=== PATIENT | male | born 1970 | race Caucasian/White ===

== ENCOUNTER 2023-10-21 12:15 | Emergency (ER) | payer OTHER, SELFPAY ==
[2023-10-21 12:20] VITALS: BP 132/75; PULSE 104; RESP 18; TEMP 36.7; O2SAT 98; BMI 25.0
--- NOTE | 2023-10-21 12:26 | DI.RAD.S_ITS ---
PROCEDURE: XR ANKLE LT MIN 3V INDICATIONS: Fall last month on ICE extreme pain. TECHNIQUE: 3 views of the ankle were acquired. COMPARISON: [facility], CR, XR FOOT LT MIN 3V, 10/21/2023, 12:33. FINDINGS: Bones: No acute fractures or dislocations. Focal irregularity can be seen involving the distal anterior tibia, which may be related to a remote fracture. Ankle mortise is normally aligned. No suspicious bony lesions. Incidental note is made of an enthesophyte at the Achilles insertion. Soft tissues: No tibiotalar joint effusion. Achilles tendon appears normal. IMPRESSION: No acute bony abnormality or significant effusion. Dictated by: Josias Montelongo M.D. on 10/21/2023 at 11:53 Approved by: Josias Montelongo M.D. on 10/21/2023 at 11:54
--- NOTE | 2023-10-21 12:26 | DI.RAD.S_ITS ---
PROCEDURE: XR FOOT LT MIN 3V INDICATIONS: Fall last month on ICE extreme pain. TECHNIQUE: 3 views of the foot were acquired. COMPARISON: [facility], CR, XR ANKLE LT MIN 3V, 10/21/2023, 12:33. FINDINGS: Bones: Focal irregularity can be seen involving the distal aspect of the distal phalanx of the great toe. Generalized degenerative changes are seen. Truncation can be seen involving the distal phalanges of the 4th and 5th toes. No displaced fractures are seen. No suspicious lytic or blastic lesions are seen. Incidental note is made of an enthesophyte at the Achilles insertion. Toe alignment abnormalities are seen. Soft tissues: No tibiotalar joint effusion. Achilles tendon appears normal. IMPRESSION: No acute fracture is seen. Irregularity can be seen involving the distal aspect of the distal phalanx of the great toe. Please correlate with physical examination findings and patient history. There is truncation seen of the distal phalanges of the 4th and 5th toes. Please correlate with prior history, including frostbite. If there is strong suspicion for developing osteomyelitis, please consider a dedicated MRI without and with contrast for further evaluation (assuming that there is no contraindication to MRI). Dictated by: Josias Montelongo M.D. on 10/21/2023 at 11:51 Approved by: Josias Montelongo M.D. on 10/21/2023 at 11:53
[2023-10-21 12:36] VITALS: PULSE 88
--- NOTE | 2023-10-21 12:41 | ED.LOWEXIN ---
HPI - Extremity Injury (Lower) <JACINTA De Leon - Last Filed: 10/21/23 15:57> General Chief Complaint: Extremity Injury, Lower Stated Complaint: inj lt ankle/foot Time Seen by Provider: 10/21/23 12:39 Source: patient Mode of arrival: Ambulatory History of Present Illness HPI Narrative: 53-year-old male, daily smoker, presents to the emergency department with left foot and ankle pain. Patient states that he slipped on the ice on October 13 and symptoms began 3 days afterwards. No home treatment and symptoms are not improving. Related Data Previous Rx's Medication Instructions Recorded cephalexin 500 mg tablet 1,000 mg (2 x 500 mg) PO Q12H 10/21/23 Cellulitis 10 days #40 tabs Allergies Allergy/AdvReac Type Severity Reaction Status Date / Time No Known Drug Allergies Allergy Verified 10/21/23 12:25 Review of Systems <JACINTA De Leon - Last Filed: 10/21/23 15:57> Review of Systems Narrative: Narrative: See HPI. GENERAL: Denies chills, fatigue, fever, sweats. HEENT: Denies sinus pain, ear pain, sore throat, difficulty swallowing, dizziness. RESPIRATORY: Denies dyspnea, cough, wheezing, sputum. CARDIOVASCULAR: Denies chest pain, palpitations, edema. GASTROINTESTINAL: Denies nausea, vomiting, abdominal pain, diarrhea, constipation. : Denies dysuria, frequency, incontinence, hematuria, urinary retention, flank pain. MSK: Denies weakness. Endorses left foot pain. SKIN: Denies rash, skin lesions, or pruritis. NEUROLOGIC: Denies weakness, dizziness, headache, numbness, confusion. PSYCHIATRIC: No concerning psychosocial issues. Patient History <JACINTA De Leon - Last Filed: 10/21/23 15:57> Social History Smoking Status: Current every day smoker Smoking Status: Current every day smoker Substance Use Type: does not use Exam <JACINTA De Leon - Last Filed: 10/21/23 15:57> Narrative Exam Narrative: Exam Narrative: GENERAL: This is a well-nourished, well-developed patient, in no acute distress. HEAD: Atraumatic. Normocephalic. EYES: Pupils equal round and reactive. No scleral icterus, injection or drainage. ENT: Nose without bleeding, purulent drainage. Airway patent. NECK: Trachea midline. No JVD or lymphadenopathy. Nontender. RESPIRATORY: Normal respiratory rate and effort. MSK: Moves all extremities. Normal range of motion, no clubbing or edema. Neurovascularly intact. NEURO: A&O x 3. SKIN: Warm, dry, no rashes or lesions noted. ANKLE: There is redness, warmth and swelling, but no bruising or asymmetry. There is tenderness to general palpation. Sensation grossly intact. There is no tenderness over the medial, lateral malleolus, proximal tibia/fibula. The anterior mortise is non-tender. Flexion and extension is intact. Unable to test for stability or laxity due to pain. The contralateral ankle exam is unremarkable. FOOT: There is redness, warmth and swelling, mild bruising of medial calcaneus but no asymmetry. There is tenderness to general palpation. Sensation grossly intact. There is no tenderness over the mid-foot, metatarsals or arch. The ankle flexion and extension is intact. Toes range of motion intact. The contralateral foot exam is unremarkable. Initial Vital Signs Initial Vital Signs: Vital Signs Temperature 98.0 F 10/21/23 12:20 Pulse Rate 104 H 10/21/23 12:20 Respiratory Rate 18 10/21/23 12:20 Blood Pressure 132/75 10/21/23 12:20 Pulse Oximetry 98 10/21/23 12:20 Oxygen Delivery Method Room Air 10/21/23 12:20 Reviewed <Gerardo Baez DO - Last Filed: 10/21/23 16:14> Initial Vital Signs Initial Vital Signs: Vital Signs Temperature 98.0 F 10/21/23 12:20 Pulse Rate 104 H 10/21/23 12:20 Respiratory Rate 18 10/21/23 12:20 Blood Pressure 132/75 10/21/23 12:20 Pulse Oximetry 98 10/21/23 12:20 Oxygen Delivery Method Room Air 10/21/23 12:20 Course <JACINTA De Leon - Last Filed: 10/21/23 15:57> Orders Ordered: ED Orders 10/21/23 12:26 XR ankle LT min 3V Stat XR foot LT min 3V Stat Vital Signs Vital signs: Vital Signs - 8 hr 10/21/23 12:20 10/21/23 12:36 10/21/23 13:25 Temperature 98.0 F Pulse Rate 104 H 80 Pulse Rate [Left Dorsalis Pedis] 88 Respiratory Rate 18 18 Blood Pressure 132/75 Pulse Oximetry 98 98 Oxygen Delivery Method Room Air Room Air <Gerardo Baez DO - Last Filed: 10/21/23 16:14> Orders Ordered: ED Orders 10/21/23 12:26 XR ankle LT min 3V Stat XR foot LT min 3V Stat Vital Signs Vital signs: Vital Signs - 8 hr 10/21/23 12:20 10/21/23 12:36 10/21/23 13:25 Temperature 98.0 F Pulse Rate 104 H 80 Pulse Rate [Left Dorsalis Pedis] 88 Respiratory Rate 18 18 Blood Pressure 132/75 Pulse Oximetry 98 98 Oxygen Delivery Method Room Air Room Air MDM - Extremity Injury (Lower) <JACINTA De Leon - Last Filed: 10/21/23 15:57> Differential Diagnosis Differential diagnosis: Likely ankle sprain and strain and other (Cellulitis) Imaging Data Extremity x-ray #1: My Impression: Normal Foot x-ray. Radiologist's Impression: [place] [address] XRay Report Signed Patient: Dannie Bateman MR#: [id number] : 1970 Acct:[id number] Age/Sex: 53 / M Date of Service: 10/21/23 Loc: ED Accession Number: [id number] Procedure: XR foot LT min 3V Ordering Provider: Gerardo Baez D.O. PROCEDURE: XR FOOT LT MIN 3V INDICATIONS: Fall last month on ICE extreme pain. TECHNIQUE: 3 views of the foot were acquired. COMPARISON: [facility], , XR ANKLE LT MIN 3V, 10/21/2023, 12:33. FINDINGS: Bones: Focal irregularity can be seen involving the distal aspect of the distal phalanx of the great toe. Generalized degenerative changes are seen. Truncation can be seen involving the distal phalanges of the 4th and 5th toes. No displaced fractures are seen. No suspicious lytic or blastic lesions are seen. Incidental note is made of an enthesophyte at the Achilles insertion. Toe alignment abnormalities are seen. Soft tissues: No tibiotalar joint effusion. Achilles tendon appears normal. IMPRESSION: No acute fracture is seen. Irregularity can be seen involving the distal aspect of the distal phalanx of the great toe. Please correlate with physical examination findings and patient history. There is truncation seen of the distal phalanges of the 4th and 5th toes. Please correlate with prior history, including frostbite. If there is strong suspicion for developing osteomyelitis, please consider a dedicated MRI without and with contrast for further evaluation (assuming that there is no contraindication to MRI). Dictated by: Josias Montelongo M.D. on 10/21/2023 at 11:51 Approved by: Josias Montelongo M.D. on 10/21/2023 at 11:53 Extremity x-ray #2: My Impression: Normal ankle x-ray. Radiologist's Impression: [address] [address] XRay Report Signed Patient: Dannie Bateman MR#: [id number] : 1970 Acct:[id number] Age/Sex: 53 / M Date of Service: 10/21/23 Loc: ED Accession Number: [id number] Procedure: XR ankle LT min 3V Ordering Provider: Gerardo Baez D.O. PROCEDURE: XR ANKLE LT MIN 3V INDICATIONS: Fall last month on ICE extreme pain. TECHNIQUE: 3 views of the ankle were acquired. COMPARISON: [facility], [facility]IL[facility], XR FOOT LT MIN 3V, 10/21/2023, 12:33. FINDINGS: Bones: No acute fractures or dislocations. Focal irregularity can be seen involving the distal anterior tibia, which may be related to a remote fracture. Ankle mortise is normally aligned. No suspicious bony lesions. Incidental note is made of an enthesophyte at the Achilles insertion. Soft tissues: No tibiotalar joint effusion. Achilles tendon appears normal. IMPRESSION: No acute bony abnormality or significant effusion. Dictated by: Josias Montelongo M.D. on 10/21/2023 at 11:53 Approved by: Josias Montelongo M.D. on 10/21/2023 at 11:54 MDM Narrative Medical decision making narrative: 53-year-old male with left lower extremity pain. X-rays revealed no acute fractures or dislocations. Assessment was concerning for beginning of cellulitis secondary to the redness, warmth, swelling and pain with palpation. Will treat patient with antibiotics for the cellulitis with instructions to follow up with family doctor later this week to ensure symptoms are improving. Per patient request, and for his comfort, patient was fitted for a walking boot. Discussed supportive care measures such as Rest (modified activity), along with ice, compression wrap/splint-immobilize as directed and elevation above heart. Tylenol or Ibuprofen for discomfort. Discussed plan of care and return precautions with patient, who verbalized understanding and was agreeable with course of action. Discharge Plan Departure Patient Disposition: Home Clinical Impression: Lower extremity sprain, Cellulitis of left lower leg Instructions: DI for Cellulitis -- Adult Activity Restrictions/Additional Instructions: *You have been diagnosed with cellulitis of your left lower leg. X-rays of your foot and ankle did not show any acute fractures or dislocations. My assessment was concerning for possible beginnings of cellulitis. We will treat this with antibiotics. As we discussed, good supportive care includes Rest (modified activity), along with ice, splint-immobilize as directed and elevation above heart. Tylenol or Ibuprofen for discomfort. We will fit you for a walking boot for your comfort. Take the antibiotics for the cellulitis as prescribed. Please follow-up with your family doctor at the end of the week if symptoms are not improving. *What to do: *Please continue to take your regular medications as directed. [x ] New medication prescriptions sent to your pharmacy: [[facility] ] [ ] New medication written as a paper prescription [ ] No new medications given *Please follow up with your primary care provider in 2-3 days, call for an appointment. Let them know you were seen in the Emergency Department and that we ask that you be seen in follow up. We will electronically transmit a record of today's note if your PCP is in our system *If you do not have a primary care provider please contact the [facility] Resource line at [phone]. They will ask some questions about your medical history and help get you set up with a doctor in the community. ? Return to ER if you should have any new, worsening or concerning symptoms, such as worsening pain, severe headache, confusion, chest pain, difficulty breathing, fever greater than 101 F, shaking chills, persistent vomiting to the point that you cannot drink fluids, or other new or worsening symptoms. Prescriptions: New cephalexin 500 mg tablet 1,000 mg PO Q12H 10 Days Qty: 40 0RF Stand Alone Forms: Patient Portal/API ED Sign-out <Gerardo Baez, DO - Last Filed: 10/21/23 16:14> Cosign ED Attending Cosignature Attestation: Dr Baez Co-Sign Statement: I was available for consultation during this patient's emergency department visit. This chart is signed by myself for administrative purposes only. I did not have direct contact with this patient during this visit. They were seen independently by the APC.
[2023-10-21 13:25] VITALS: PULSE 80; RESP 18; O2SAT 98
== END 2023-10-21 13:25 | disposition home or self-care (01) ==
PROVIDERS: Emergency Provider Registered Nurse
DX: S93.402A Sprain of unspecified ligament of left ankle, initial encounter (principal); L03.116 Cellulitis of left lower limb; W01.0XXA Fall on same level from slipping, tripping and stumbling without subsequent striking against object, initial encounter
CPT/HCPCS: 73610; 73630; 99281; 99283

== ENCOUNTER 2024-01-28 16:29 | Emergency (ER) | payer OTHER, SELFPAY ==
[2024-01-28] VITALS (7 sets, daily range): BP systolic 144–157; BP diastolic 70–84; PULSE 72–95; RESP 15–23; TEMP 36.7; O2SAT 95–97; BMI 25.0
--- NOTE | 2024-01-28 16:40 | DI.RAD.S_ITS ---
PROCEDURE: XR CHEST 1V INDICATIONS: chest pain TECHNIQUE: One view of the chest was acquired. COMPARISON: None. FINDINGS: Surgical changes and devices: None. Lungs and pleura: Lungs are clear. No pleural effusions or pneumothorax. Mediastinum: Mediastinal contours appear normal. Heart size is normal. Bones and chest wall: No suspicious bony lesions. Overlying soft tissues appear unremarkable. IMPRESSION: No acute cardiopulmonary abnormality is seen. Dictated by: Eusebio Hernández M.D. on 01/28/2024 at 17:03 Approved by: Eusebio Hernández M.D. on 01/28/2024 at 17:03
[2024-01-28] MEDS: ASPIRIN 81 MG CHEW TAB 324 MG PO (16:54)
[2024-01-28 16:58] LABS: Add Manual Diff / Slide Review NO; Basophils Absolute Auto 0 /uL (0-100); Basophils Percent Auto 0.5 % (0-2); Eosinophils Absolute Auto 100 /uL (0-450); Eosinophils Percent Auto 1.3 % (2-4); Hematocrit 40.9 % (41-53); Hemoglobin 14.2 g/dL (13.5-17.5); Lymphocytes Absolute Auto 2000 /uL (1100-4500); Lymphocytes Percent Auto 24.8 % (25-40); Mean Corpuscular HGB Conc 34.7 % (30-36); Mean Corpuscular Hemoglobin 31.3 PG (26-34); Mean Corpuscular Volume 90.2 fL (80-100); Monocytes Absolute Auto 300 /uL (0-900); Monocytes Percent Auto 4.3 % (3-14); Neutrophils Absolute Auto 5500 /uL (1500-7000); Neutrophils Percent Auto 69.1 % (50-75); Platelet Count 240 X10^3/uL (150-400); Red Blood Cell Count 4.53 X10^6/uL (4.5-5.9); Red Cell Distribution Width 14.5 % (11.6-14.8)
--- NOTE | 2024-01-28 16:59 | PC.NURSE ---
Pt reports hx of electrocution where heart stopped but they got me back.
[2024-01-28 17:05] LABS: Prothrombin Time 11.6 SECONDS (9.4-12.5)
[2024-01-28 17:08] LABS: PTT Partial Thromboplastin Tim 41 SECONDS (25.1-36.5)
[2024-01-28 17:10] LABS: Alanine Aminotransferase 19 IU/L (<50); Albumin 4.5 g/dL (3.5-5.0); Albumin Globulin Ratio 1.6 (1.0-2.8); Alkaline Phosphatase 90 U/L (38-126); Aspartate Aminotransferase 24 IU/L (17-59); BUN Creatinine Ratio 14.6 (6-22); Bilirubin Total 0.5 mg/dL (0.2-1.3); Blood Urea Nitrogen 13 mg/dL (9-20); Calcium 9.2 mg/dL (8.4-10.2); Carbon Dioxide 25 mmol/L (22-32); Chloride 107 mmol/L (98-107); Creatine Kinase 102 U/L (55-170); Estimated Glomerular Filt Rate > 60 mL/min (>60); Globulin 2.9 g/dL (1.7-4.1); Glucose 263 mg/dL (70-100); HEMOLYSIS < 15 (0-50); Lipase 73 U/L (23-300); Magnesium 1.8 mg/dL (1.6-2.3); Potassium 3.8 mmol/L (3.4-5.1); Sodium 140 mmol/L (137-145); Total Protein 7.4 g/dL (6.3-8.2)
--- NOTE | 2024-01-28 17:10 | ED_ITS ---
HPI - Chest Pain General Chief Complaint: Chest Pain Stated Complaint: chest pain Time Seen by Provider: 01/28/24 16:54 Source: patient Mode of arrival: Ambulatory Limitations: no limitations History of Present Illness HPI narrative: Patient is a 53-year-old male who is here for evaluation of 2 weeks of consistent right-sided sharp chest discomfort that is not worse with palpation or movement or breathing. No skin rashes. Has not had anything like this in the past. No trauma. No back pain. No abdominal pain. No fevers or cough or change in bowel habits. No underlying lung pathology. Related Data Allergies Allergy/AdvReac Type Severity Reaction Status Date / Time No Known Drug Allergies Allergy Verified 10/21/23 12:25 Review of Systems Review of Systems ROS Unobtainable: All systems reviewed & are unremarkable except as noted in HPI and below Patient History Social History Smoking Status: Current every day smoker Smoking Status: Current every day smoker alcohol intake frequency: 0-2 drinks per day Substance Use Type: marijuana Exam Initial Vital Signs Initial Vital Signs: Vital Signs Temperature 98.1 F 01/28/24 16:40 Pulse Rate 90 01/28/24 16:40 Respiratory Rate 18 01/28/24 16:40 Blood Pressure 145/81 H 01/28/24 16:40 Pulse Oximetry 97 01/28/24 16:40 Oxygen Delivery Method Room Air 01/28/24 16:40 Const General: cooperative, healthy appearing and No ill appearing HENMT Head: normal to inspection and normocephalic Resp Effort & Inspection: normal respiratory effort Auscultation: clear to auscultation bilaterally Cardio Rate: regular rate Rhythm: regular rhythm GI Inspection: normal to inspection and non-distended Palpation: soft, No firm and No tender Skin General: no rashes or lesions noted Neuro General: patient alert, patient awake, patient oriented x3 and moves all extremities Extrem General: normal to inspection and capillary refill normal Scores Wells' Criteria for PE Clinical signs and symptoms of DVT: No PE is #1 Dx or equally likely: Yes Heart rate > 100: No Immobilization at least 3 days or surg in previous 4 weeks: No History of PE or DVT: No Hemoptysis: No Malignancy w/Treatment within 6 months or palliative: No Wells' PE Score total: 3 Course Orders Ordered: ED Orders 01/28/24 16:40 XR chest 1V Stat EKG-12 Lead Stat 01/28/24 16:50 Complete Blood Count AUTO DIFF Stat Comprehensive Metabolic Panel Stat Lipase Stat Magnesium Stat PTT Partial Thromboplastin Micheal Stat Prothrombin Time INR Stat Troponin & CK Cardiac Panel Stat Discontinued Medications Aspirin (Aspirin 81 Mg Chew Tab) 324 mg PO NOW ONE Stop: 01/28/24 16:41 Last Admin: 01/28/24 16:54 Dose: 324 mg Documented By: SB Vital Signs Vital signs: Vital Signs - 8 hr 01/28/24 16:40 01/28/24 16:43 01/28/24 16:44 Temperature 98.1 F Pulse Rate 90 95 H Respiratory Rate 18 Blood Pressure 145/81 H 145/81 H Pulse Oximetry 97 96 Oxygen Delivery Method Room Air 01/28/24 16:44 01/28/24 17:00 01/28/24 17:00 Temperature Pulse Rate 92 H 89 Respiratory Rate 21 Blood Pressure 144/84 H Pulse Oximetry 97 96 Oxygen Delivery Method Room Air 01/28/24 17:30 01/28/24 17:30 01/28/24 18:00 Temperature Pulse Rate 81 74 Respiratory Rate 23 20 Blood Pressure 154/70 H Pulse Oximetry 95 96 Oxygen Delivery Method Room Air 01/28/24 18:00 Temperature Pulse Rate Respiratory Rate Blood Pressure 157/73 H Pulse Oximetry Oxygen Delivery Method MDM - Chest Pain Lab Data Attestation: I reviewed the patient's lab results. 01/28/24 16:50 01/28/24 16:50 Labs: Lab Results 01/28/24 Range/Units 16:50 WBC 8.0 (4.5-11.0) X10^3/uL RBC 4.53 (4.5-5.9) X10^6/uL Hgb 14.2 (13.5-17.5) g/dL Hct 40.9 L (41-53) % MCV 90.2 (80-100) fL MCH 31.3 (26-34) PG MCHC 34.7 (30-36) % RDW 14.5 (11.6-14.8) % Plt Count 240 (150-400) X10^3/uL Neut % (Auto) 69.1 (50-75) % Lymph % (Auto) 24.8 L (25-40) % [place] % (Auto) 4.3 (3-14) % Eos % (Auto) 1.3 L (2-4) % Baso % (Auto) 0.5 (0-2) % Neut # (Auto) 5500 (1358-1922) /uL Lymph # (Auto) 2000 (6648-5552) /uL [place] # (Auto) 300 (0-900) /uL Eos # (Auto) 100 (0-450) /uL Baso # (Auto) 0 (0-100) /uL PT 11.6 (9.4-12.5) SECONDS INR 1.0 (0.9-1.3) APTT 41 H (25.1-36.5) SECONDS Sodium 140 (137-145) mmol/L Potassium 3.8 (3.4-5.1) mmol/L Chloride 107 (98-107) mmol/L Carbon Dioxide 25 (22-32) mmol/L BUN 13 (9-20) mg/dL Creatinine 0.89 (0.66-1.25) mg/dL Estimated GFR > 60 (>60) mL/min BUN/Creatinine Ratio 14.6 (6-22) Glucose 263 H (70-100) mg/dL Calcium 9.2 (8.4-10.2) mg/dL Magnesium 1.8 (1.6-2.3) mg/dL Total Bilirubin 0.5 (0.2-1.3) mg/dL AST 24 (17-59) IU/L ALT 19 (<50) IU/L Alkaline Phosphatase 90 (38-126) U/L Total Creatine Kinase 102 (55-170) U/L Troponin I < 0.012 (0.01-0.034) ng/mL Total Protein 7.4 (6.3-8.2) g/dL Albumin 4.5 (3.5-5.0) g/dL Globulin 2.9 (1.7-4.1) g/dL Albumin/Globulin Ratio 1.6 (1.0-2.8) Lipase 73 (23-300) U/L Imaging Data Chest x-ray: Radiologist's Impression: PROCEDURE: XR CHEST 1V INDICATIONS: chest pain TECHNIQUE: One view of the chest was acquired. COMPARISON: None. FINDINGS: Surgical changes and devices: None. Lungs and pleura: Lungs are clear. No pleural effusions or pneumothorax. Mediastinum: Mediastinal contours appear normal. Heart size is normal. Bones and chest wall: No suspicious bony lesions. Overlying soft tissues appear unremarkable. IMPRESSION: No acute cardiopulmonary abnormality is seen. ECG Data Attestation: I personally reviewed and interpreted this ECG as follows: Interpretation: Sinus rhythm Ventricular rate of 88 Normal axis Normal QRS Normal QTC No ST T wave changes MDM Narrative Medical decision making narrative: Patient is low risk for PE given the revised Portal score for pulmonary embolism. Patient is moderate risk group given the well's criteria for pulmonary embolism. I have low suspicion for ACS as the patient has discomfort on the right side of his chest and he has had it for 2 weeks consistently and has had a negative troponin. He has no rash consistent with zoster. Chest x- ray is not consistent with pneumonia. I do suspect musculoskeletal. Low suspicion for GI. Will discharge patient home with return precautions and follow-up instructions. He expressed understanding and agreement. Discharge Plan Departure Patient Disposition: Home Clinical Impression: Right-sided chest pain Instructions: DI for Atypical Chest Pain Activity Restrictions/Additional Instructions: You can take Tylenol and or ibuprofen for any discomfort. Contact your primary care doctor for a follow-up. Return to the emergency department for new or worsening symptoms. Referrals: Miscellaneous,[facility] [Primary Care Provider] - Stand Alone Forms: Patient Portal/API
[2024-01-28 17:22] LABS: Troponin I < 0.012 ng/mL (0.01-0.034)
== END 2024-01-28 18:49 | disposition home or self-care (01) ==
PROVIDERS: Emergency Provider Emergency Medicine
DX: R07.9 Chest pain, unspecified (principal)
CPT/HCPCS: 36415; 71045; 80053; 82550; 83690; 83735; 84484; 85025; 85610; 85730; 93005; 93010; 99284